=== PATIENT | male | born 2000 | race Caucasian/White ===

== ENCOUNTER 2022-06-23 14:08 | Emergency (ER) | payer MEDICAID ==
[~2022-06-23] VITALS: Ht 177.8 cm; Wt 87.5 kg
[2022-06-23 14:37] VITALS: BP 149/62
--- NOTE | 2022-06-23 16:18 | NUR ---
R LOWER ARM/ WRIST, ULNAR GUTTER SPLINT APPLIED WITH ISAAC WRAP X 1. + CMS.
--- NOTE | 2022-06-23 16:48 | NUR ---
Patient discharged with v/s stable. Written and verbal after care instructions ABOUT BOXERS FRACTURE AND CAST OR SPLINT CARE given and explained. Patient verbalized understanding. Ambulatory with steady gait. All questions addressed prior to discharge. Advised to follow up with PMD.
== END 2022-06-23 16:48 | disposition home or self-care (01) ==
LOC: MED 14:08 → EDSEX 14:08 → MED 16:48
DX: S62.366A Nondisplaced fracture of neck of fifth metacarpal bone, right hand, initial encounter for closed fracture (principal); F12.90 Cannabis use, unspecified, uncomplicated; Z98.890 Other specified postprocedural states; W22.09XA Striking against other stationary object, initial encounter; Y92.89 Other specified places as the place of occurrence of the external cause; Y93.89 Activity, other specified; Y99.8 Other external cause status
CPT/HCPCS: 73130; 99283